=== PATIENT | female | born 1995 | race African-American/Black ===

== ENCOUNTER 2017-04-09 11:24 | Emergency (ER) | payer MEDICAID, OTHER ==
[~2017-04-09 11:24] MED LIST: IBUP800T23 PO; METHO500 PO
[2017-04-09 11:43] VITALS: BP 106/68; PULSE 81
[2017-04-09 12:23] LABS: BACTERIA, URINE FEW /hpf; BLOOD, URINE NEG (NEG); COMMENT (UR) CULT NOT INDICATED; CULTURE IF INDICATED CULT NOT INDICATED; GLUCOSE,URINE NEG (NEG); KETONE, URINE NEG (NEG); MUCUS URINE FEW /lpf (OCC); NITRITE,URINE NEG (NEG); PH, URINE 7.5 (5.0-8.5); SQUAMOUS EPITHELIAL CELL URINE 8 /hpf (0-5); TRANSITIONAL EPI CELLS, URINE <1 /hpf; URINE COLOR YELLOW (YELLW/STRAW)
--- NOTE | 2017-04-09 12:43 | PD ---
HPI Chief Complaint Left-sided abdominal pain just today Date Seen: Apr 09, 2017 Travel History International Travel<30 Days: No Contact w/Intl Traveler<30Days: No Known Affected Area: No History of Present Illness HPI Patient 22-year-old black female at 29 weeks presents plan left-sided abdominal pain today. Pain is sharp and comes and goes she describes every 6 minutes or so. heart rate tracing is reactive and no contractions seen on the monitor patient denies bleeding or rupture the membranes. Para: 0 : 1 History Social History Alcohol Use: No Tobacco Use: No Substance Abuse: No Allergies-Medications (Allergen,Severity, Reaction): Coded Allergies: No Known Allergies (Unverified , 04/02/15) Home Meds Active Scripts Methocarbamol (Robaxin 500 Mg Tab)500 Mg [id number] Mg PO QID 7 Days Ref 0 Prov:Keyla Peters MD 04/02/15 Ibuprofen 800 Mg [id number] Mg PO TID 10 Days Ref 0 Prov:Keyla Peters MD 04/02/15 Review of Systems General / Constitutional: No: Fever, Weight Gain, Chills, Other Eyes: No: Diploplia, Blurred Vision, Visual changes, Pain, Photophobia HENT: No: Headaches, Vertigo, Lightheadedness Cardiovascular: No: Irregular Rhythm, Chest Pain or Discomfort, Palpitations, Tachycardia, Syncope, Varicosities, Edema, Cyanosis Respiratory: No: Cough, Short of Breath, Other Gastrointestinal: Abdominal Pain, No: Nausea, Vomiting, Diarrhea Genitourinary: No: Decreased Urinary Output, Oliguria Musculoskeletal: No: Limited ROM, Weakness, Cramping, Edema, Pain Skin: No Rash, No Itching, No Dryness, No Lumps, No Change in Pigmentation, No Change in Nails, No Alopecia, No Lesions Neurologic: No: Weakness, Dizziness, Syncope, Focal Abnormalities, Coordination Problem, Headache, Slurred Speech, Seizures Psychiatric: No: Depression, Suicidal Ideations, Homicidal Ideation Endocrine: No: Heat Intolerance, Cold Intolerance, Polydipsia, Polyuria, Other Physical Exam Vital Signs Date Time Temp Pulse Resp B/P Pulse Ox O2 Delivery O2 Flow Rate FiO2 04/09/17 11:43 81 106/68 Narrative GENERAL: Well-nourished, well-developed patient. SKIN: Warm and dry. HEAD: Normocephalic and atraumatic. EYES: No scleral icterus. No injection or drainage. ENT: No nasal drainage noted. Mucous membranes pink. Airway patent. NECK: Supple, trachea midline. No JVD. CARDIOVASCULAR: Regular rate and rhythm without murmurs, gallops, or rubs. RESPIRATORY: Breath sounds equal bilaterally. No accessory muscle use. BREASTS: Bilateral exam showed no masses , no retractions, no nipple discharge. ABDOMEN/GI: Abdomen soft, non-tender, bowel sounds present, no rebound, no guarding Gravid to [-29] weeks size Fundal Height: [29-] GENITOURINARY: External Genitalia: intact and normal in appearance BUS glands: [-] Cervix: [-] Dilatation: [-Closed] Effacement: [-] Thick Station: [-3] Membranes: [intact ] Uterine Contractions: [none-] FHT's: Category: [1-] Baseline: [133-] Reactive: [-yes] Variability: [-mod] Decels: [0-] EXTREMITIES: No cyanosis or edema. BACK: Nontender without obvious deformity. No CVA tenderness. NEUROLOGICAL: Awake and alert. Motor and sensory grossly within normal limits. Five out of 5 muscle strength in all muscle groups. Normal speech. Data Data Orders Vital Signs (Adult) .ON ADMISSION (04/09/17 11:52) ^ Labor Status (04/09/17 11:52) Urinalysis - C+S If Indicated (04/09/17 11:52) Labs Laboratory Tests Test 04/09/17 12:00 Urine Color YELLOW Urine Turbidity HAZY Urine pH 7.5 Urine Specific [place] 1.013 Urine Protein NEG Urine Glucose (UA) NEG Urine Ketones NEG Urine Occult Blood NEG Urine Nitrite NEG Urine Bilirubin NEG Urine Urobilinogen LESS THAN 2.0 Urine Leukocyte Esterase NEG Urine RBC 1 Urine WBC 1 Urine Squamous Epithelial 8 Cells Urine Transitional Epithelial <1 Cells Urine Bacteria FEW Urine Mucus FEW Microscopic Urinalysis Comment CULT NOT INDICATED MDM Interpretation(s) Patient 22-year-old white female at [address] Toro for care who presents complaining of left-sided abdominal pain sharp on today, no bleeding or leakage of fluid. Baby is active. heart rate tracing is reactive. contractions none seen, urinalysis negative, cervix closed and high Plan Plan for patient to be at bedrest increase her fluid intake and use a heating pad or hot bath for comfort Tylenol by mouth as needed and follow up with her OB provider return for worsening symptoms Diagnosis Diagnosis: Primary Impression: 29 weeks gestation of Additional Impression: Pain of round ligament during Disposition: 01 DISCHARGE HOME Condition: Stable Patient Instructions: General Instructions Departure Forms: Tests/Procedures Rasheed Calderon II, MD Apr 09, 2017 12:43
== END 2017-04-09 12:54 | disposition home or self-care (01) ==
LOC: HOBED 11:24
DX: O26.893 Other specified pregnancy related conditions, third trimester (principal); R10.2 Pelvic and perineal pain; Z3A.29 29 weeks gestation of pregnancy
CPT/HCPCS: 81001; 99283

== ENCOUNTER 2017-06-15 13:36 | Emergency (ER) | payer MEDICAID ==
--- NOTE | 2017-06-15 14:28 | PD ---
HPI Chief Complaint Contractions and spotting Date Seen: Jun 15, 2017 Time Seen: 14:20 Travel History International Travel<30 Days: No Contact w/Intl Traveler<30Days: No Known Affected Area: No History of Present Illness HPI This patient is 22-year-old black female at 38-39 weeks who presents with contractions that are mild and minimal amount of spotting. No gross blood per vagina no leakage of fluid. heart tones are reactive and she is meena every 6-[address] Toro for care Weeks Gestation: 38 Para: 0 : 1 History Social History Alcohol Use: No Tobacco Use: No Substance Abuse: No Allergies-Medications (Allergen,Severity, Reaction): Coded Allergies: No Known Allergies (Unverified , 04/02/15) Home Meds Active Scripts Methocarbamol (Robaxin 500 Mg Tab) 500 Mg Tab, 500 MG PO QID for 7 Days, TAB 0 Refills Prov:Keyla Peters MD 04/02/15 Ibuprofen (Ibuprofen) 800 Mg Tab, 800 MG PO TID for 10 Days, TAB 0 Refills Prov:Keyla Peters MD 04/02/15 Review of Systems General / Constitutional: No: Fever, Weight Gain, Chills, Other Eyes: No: Diploplia, Blurred Vision, Visual changes, Pain, Photophobia HENT: No: Headaches, Vertigo, Lightheadedness Cardiovascular: No: Irregular Rhythm, Chest Pain or Discomfort, Palpitations, Tachycardia, Syncope, Varicosities, Edema, Cyanosis Respiratory: No: Cough, Short of Breath, Other Gastrointestinal: Abdominal Pain, No: Nausea, Vomiting, Diarrhea Genitourinary: Vaginal Bleeding, No: Decreased Urinary Output, Oliguria Musculoskeletal: No: Limited ROM, Weakness, Cramping, Edema, Pain Skin: No Rash, No Itching, No Dryness, No Lumps, No Change in Pigmentation, No Change in Nails, No Alopecia, No Lesions Neurologic: No: Weakness, Dizziness, Syncope, Focal Abnormalities, Coordination Problem, Headache, Slurred Speech, Seizures Psychiatric: No: Depression, Suicidal Ideations, Homicidal Ideation Endocrine: No: Heat Intolerance, Cold Intolerance, Polydipsia, Polyuria, Other Physical Exam Narrative GENERAL: Well-nourished, well-developed patient. SKIN: Warm and dry. HEAD: Normocephalic and atraumatic. EYES: No scleral icterus. No injection or drainage. ENT: No nasal drainage noted. Mucous membranes pink. Airway patent. NECK: Supple, trachea midline. No JVD. CARDIOVASCULAR: Regular rate and rhythm without murmurs, gallops, or rubs. RESPIRATORY: Breath sounds equal bilaterally. No accessory muscle use. BREASTS: Bilateral exam showed no masses , no retractions, no nipple discharge. ABDOMEN/GI: Abdomen soft, non-tender, bowel sounds present, no rebound, no guarding Gravid to [-38] weeks size Fundal Height: [-38] GENITOURINARY: External Genitalia: intact and normal in appearance BUS glands: [-] Cervix: [-Closed] Dilatation: [Closed-] Effacement: [-] Thick Station: [-3] Presentation: [-vtx] Membranes: [intact ] Uterine Contractions: [-q 7 min] FHT's: Category: [-1] Baseline: [133-] Reactive: [-yes] Variability: [mod-] Decels: [none-] EXTREMITIES: No cyanosis or edema. BACK: Nontender without obvious deformity. No CVA tenderness. NEUROLOGICAL: Awake and alert. Motor and sensory grossly within normal limits. Five out of 5 muscle strength in all muscle groups. Normal speech. MDM Interpretation(s) 22-year-old black female at 38-39 weeks presents with contractions and spotting minimally. heart tones are reactive and she is meena every 7 minutes. Patient states that she's barely feeling the contractions at this time and her cervix is closed and high. Plan Plan to discharge patient home to bedrest to drink plenty of fluids heating pad along her lower abdomen were hot bath symptoms and just observe is going on as the real thing her labor will progress in the contractions strength in and get closer together Diagnosis Diagnosis: Primary Impression: False labor after 37 weeks of gestation without delivery Disposition: 01 DISCHARGE HOME Condition: Stable Rasheed Calderon II, MD Jun 15, 2017 14:28
== END 2017-06-15 15:00 | disposition home or self-care (01) ==
LOC: HOBED 13:36
DX: O47.1 False labor at or after 37 completed weeks of gestation (principal); Z3A.38 38 weeks gestation of pregnancy
CPT/HCPCS: 59025

== ENCOUNTER 2017-06-28 20:15 | Inpatient (IN) | payer MEDICAID ==
[~2017-06-28] VITALS: Ht 175.3 cm; Wt 77.6 kg
[2017-06-28 21:30] VITALS: RESP 18
[2017-06-28 22:00] VITALS: RESP 18
[2017-06-28] MEDS ORDERED: NS 1000 ML OTHER PRN (22:00)
[2017-06-28] MEDS: LACTATED RINGER'S 1000 ML IV SCH (22:00)
[2017-06-28] MEDS ORDERED: LACTATED RINGER'S 1000 ML BOLUS IV PRN (22:00)
[2017-06-28] MEDS ORDERED: SODIUM CHLORIDE 0.9% FLUSH 10 ML FLUSH IV FLUSH PRN (22:00)
[2017-06-28] MEDS ORDERED: DINOPROSTONE 10 MG INSERT-LEAVE FOR 12 HOURS VAGINAL ONE (22:00)
[2017-06-28] MEDS: LACTATED RINGER'S 1000 ML INJ 1,000 ML IV SCH (22:00)
[2017-06-28] MEDS ORDERED: CITRIC ACID-SODIUM CITRATE LIQ 30 ML UDC PO SCH (22:15)
[2017-06-28] MEDS ORDERED: LIDOCAINE HCL 1% 50 ML VIAL INFIL PRN (22:15)
[2017-06-28] MEDS ORDERED: MINERAL OIL 10 ML VIAL TOPICAL PRN (22:15)
[2017-06-28] MEDS ORDERED: NS 500 ML BOLUS IV PRN (22:15)
[2017-06-28] MEDS ORDERED: ZOLPIDEM TARTRATE 10 MG TAB PO PRN (22:15)
[2017-06-28] MEDS ORDERED: ONDANSETRON HCL 4 MG/2 ML VIAL IV PUSH PRN (22:15)
[2017-06-28] MEDS ORDERED: LIDOCAINE HCL 1% 50 ML VIAL I-DERMAL PRN (22:15)
[2017-06-28] MEDS ORDERED: NS 1000 ML IV PRN (22:15)
[2017-06-28 22:25] LABS: BASOPHIL % 0.5 % (0.0-2.0); EOSINOPHIL # 0.1 TH/MM3 (0-0.4); EOSINOPHIL % 2.3 % (0.0-4.0); HEMATOCRIT 26.7 % (35.0-46.0); HEMO FLAGS DIFF FINAL; LYMPHOCYTE # 1.1 TH/MM3 (1.0-4.8); MEAN CELL VOLUME 68.6 FL (80.0-100.0); MEAN CORPUSCULAR HEMOGLOBIN 21.7 PG (27.0-34.0); MEAN CORPUSCULAR HGB CONC 31.6 % (32.0-36.0); NEUT % 63.2 % (16.0-70.0); PLATELET COUNT 183 TH/MM3 (150-450); RED BLOOD COUNT 3.89 MIL/MM3 (4.00-5.30); RED CELL DISTRIBUTION WIDTH 15.2 % (11.6-17.2); WHITE BLOOD COUNT 4.8 TH/MM3 (4.0-11.0)
[2017-06-28 22:30] VITALS: RESP 18
[2017-06-28 22:36] LABS: BACTERIA, URINE OCC /hpf; BLOOD, URINE MOD (NEG); COMMENT (UR) CULTURE INDICATED; CULTURE IF INDICATED CULTURE INDICATED; GLUCOSE,URINE 70 mg/dL (NEG); KETONE, URINE NEG (NEG); MUCUS URINE FEW /lpf (OCC); NITRITE,URINE NEG (NEG); PH, URINE 6.5 (5.0-8.5); SQUAMOUS EPITHELIAL CELL URINE 4 /hpf (0-5); URINE COLOR LIGHT-YELLOW (YELLW/STRAW)
[2017-06-28 23:00] VITALS: RESP 18
[2017-06-28 23:30] VITALS: RESP 18
[2017-06-29] VITALS (26 sets, daily range): BP systolic 119–132; BP diastolic 68–90; PULSE 68–87; RESP 6–20; TEMP 98–98.6
[2017-06-29] MEDS: LACTATED RINGER'S 1000 ML IV SCH ×2 (05:50→17:03)
[2017-06-29] MEDS: LACTATED RINGER'S 1000 ML INJ 1,000 ML IV SCH (06:00)
--- NOTE | 2017-06-29 08:09 | HHI.HP ---
HPI Chief Complaint post dates labor induction, abnl testing in office Date Seen: Jun 28, 2017 Time Seen: 21:30 Travel History International Travel<30 Days: No Contact w/Intl Traveler<30Days: No Known Affected Area: No History of Present Illness HPI 22 yo G1 with EDC 06/24/17 seen in the office for postdates testing at 40w4d on 06/28/17 with abnormal finding of increased UA doppler. Due to postdates it was discussed with pt induction was recommended and pt was sent to L&D. BPP in office was 05/03. has been complicated by chronic anemia, baseline Hgb 9.0. Patient is also sickle cell trait positive, father of baby is negative. Most recently EFW was 64%tile at 35 weeks. Pt c/o pelvic pressure but no regular contractions, no VB or LOF. Good FM. Pain 1-2/10 pressure. Weeks Gestation: 41 Para: 0 : 1 Last Menstrual Period: Sep 17, 2016 Miscarriage: 0 : 0 History Past Medical History Narrative Medical chronic anemia sickle cell trait + Obstetric History Obstetric History G1 = current, female Past Surgical History Surgical History: No Previous Surgery Family History Family History: Negative Social History Alcohol Use: No Tobacco Use: No Substance Abuse: No Allergies-Medications (Allergen,Severity, Reaction): Coded Allergies: No Known Allergies (Unverified , 06/28/17) Home Meds Active Scripts Methocarbamol (Robaxin 500 Mg Tab) 500 Mg Tab, 500 MG PO QID for 7 Days, TAB 0 Refills Prov:Keyla Peters MD 04/02/15 Ibuprofen (Ibuprofen) 800 Mg Tab, 800 MG PO TID for 10 Days, TAB 0 Refills Prov:Keyla Peters MD 04/02/15 Review of Systems General / Constitutional: Weight Gain, No: Fever, Chills, Other Eyes: No: Diploplia, Blurred Vision, Visual changes, Pain, Photophobia HENT: No: Headaches, Vertigo, Lightheadedness Cardiovascular: No: Irregular Rhythm, Chest Pain or Discomfort, Palpitations, Tachycardia, Syncope, Varicosities, Edema, Cyanosis Respiratory: No: Cough, Short of Breath, Other Gastrointestinal: No: Nausea, Vomiting, Diarrhea Genitourinary: Pelvic Pain (pressure), No: Decreased Urinary Output, Oliguria Musculoskeletal: No: Limited ROM, Weakness, Cramping, Edema, Pain Skin: No Rash, No Itching, No Dryness, No Lumps, No Change in Pigmentation, No Change in Nails, No Alopecia, No Lesions Neurologic: No: Weakness, Dizziness, Syncope, Focal Abnormalities, Coordination Problem, Headache, Slurred Speech, Seizures Psychiatric: No: Depression, Suicidal Ideations, Homicidal Ideation Endocrine: No: Heat Intolerance, Cold Intolerance, Polydipsia, Polyuria, Other Physical Exam Vital Signs Date Time Temp Pulse Resp B/P (MAP) Pulse Ox O2 Delivery O2 Flow Rate FiO2 06/29/17 05:48 98.0 06/29/17 05:48 78 18 130/80 (97) 06/29/17 05:00 18 06/29/17 04:00 18 06/29/17 03:00 18 06/29/17 02:00 18 06/29/17 01:00 18 06/29/17 00:00 18 06/28/17 23:30 18 06/28/17 23:00 18 06/28/17 22:30 18 06/28/17 22:00 18 06/28/17 21:30 18 Narrative GENERAL: Well-nourished, well-developed patient. SKIN: Warm and dry. HEAD: Normocephalic and atraumatic. EYES: No scleral icterus. No injection or drainage. ENT: No nasal drainage noted. Mucous membranes pink. Airway patent. NECK: Supple, trachea midline. No JVD. CARDIOVASCULAR: Regular rate and rhythm without murmurs, gallops, or rubs. RESPIRATORY: Breath sounds equal bilaterally. No accessory muscle use. BREASTS: deferred ABDOMEN/GI: Abdomen soft, non-tender, bowel sounds present, no rebound, no guarding Gravid to [41] weeks size Fundal Height: [38] GENITOURINARY: External Genitalia: intact and normal in appearance BUS glands: [wnl] Cervix: [posterior] Dilatation: [1] Effacement: [50] Station: [-3] Presentation: [-] Membranes: [intact] Uterine Contractions: [irregular, rare] FHT's: 8/8 BPP in office, FHTs 130s EXTREMITIES: No cyanosis or edema. BACK: Nontender without obvious deformity. No CVA tenderness. NEUROLOGICAL: Awake and alert. Motor and sensory grossly within normal limits. Five out of 5 muscle strength in all muscle groups. Normal speech. Caprini VTE Risk Assessment Caprini VTE Risk Assessment: No/Low Risk (score <= 1) VTE Pharm Contraindication: High risk for bleeding Caprini Risk Assessment Model Point Value = 1 Point Value = 2 Point Value = 3 Point Value = 5 Age 41-60 Minor surgery BMI > 25 kg/m2 Swollen legs Varicose veins or History of unexplained or recurrent spontaneous Oral contraceptives or hormone replacement Sepsis (< 1 month) Serious lung disease, including pneumonia (< 1 month) Abnormal pulmonary function Acute myocardial infarction Congestive heart failure (< 1 month) History of inflammatory bowel disease Medical patient at bed rest Age 61-74 Arthroscopic surgery Major open surgery (> 45 min) Laparoscopic surgery (> 45 min) Malignancy Confined to bed (> 72 hours) Immobilizing plaster cast Central venous access Age >= 75 History of VTE Family history of VTE Factor V Leiden Prothrombin [id number] Lupus anticoagulant Anticardiolipin antibodies Elevated serum homocysteine Heparin-induced thrombocytopenia Other congenital or acquired thrombophilia Stroke (< 1 month) Elective arthroplasty Hip, pelvis, or leg fracture Acute spinal cord injury (< 1 month) Prophylaxis Regimen Total Risk Factor Score Risk Level Prophylaxis Regimen 0-1 Low Early ambulation 2 Moderate Order ONE of the following: *Sequential Compression Device (SCD) *Heparin 5000 units SQ BID 3-4 Higher Order ONE of the following medications: *Heparin 5000 units SQ TID *Enoxaparin/Lovenox 40 mg SQ daily (WT < 150 kg, CrCl > 30 mL/min) *Enoxaparin/Lovenox 30 mg SQ daily (WT < 150 kg, CrCl > 10-29 mL/min) *Enoxaparin/Lovenox 30 mg SQ BID (WT < 150 kg, CrCl > 30 mL/min) AND/OR *Sequential Compression Device (SCD) 5 or more Highest Order ONE of the following medications: *Heparin 5000 units SQ TID (Preferred with Epidurals) *Enoxaparin/Lovenox 40 mg SQ daily (WT < 150 kg, CrCl > 30 mL/min) *Enoxaparin/Lovenox 30 mg SQ daily (WT < 150 kg, CrCl > 10-29 mL/min) *Enoxaparin/Lovenox 30 mg SQ BID (WT < 150 kg, CrCl > 30 mL/min) AND *Sequential Compression Device (SCD) Data Data Vital Signs Reviewed: Yes Orders Orders Admit To Inpatient (06/28/17 ) Diet Liquid (06/29/17 Breakfast) Activity Oob Ad Kim (06/28/17 21:51) ^ Labor Induction (06/28/17 21:51) ^ Vaginal Insert (06/28/17 21:51) ^ Vaginal Lavage (06/28/17 21:51) Heart (06/28/17 21:51) Admit To Inpatient (06/28/17 ) Vital Signs (Adult) .Per protocol (06/28/17 21:52) Activity Oob Ad Kim (06/28/17 21:52) Heart (06/28/17:52) Amnioinfusion (06/28/17:52) Urinary Catheter Management .ONCE (06/28/17 21:52) Complete Blood Count With Diff (06/28/17 21:52) Hold Clot (06/28/17:52) Abo/Rh Blood Type (06/28/17 21:52) Urinalysis - C+S If Indicated (06/28/17 21:52) Resp Oxygen Non Rebreathe Mask (06/28/17 ) ^ Epidural / Intrathecal Infus (06/28/17 21:52) Dinoprostone Vag Insert (Cervidil Vag In (06/28/17 22:00) Lactated Ringer's 1000 Ml Inj (Lr 1000 M (06/28/17 22:00) Sodium Chloride 0.9% Flush (Ns Flush) (06/28/17 22:00) Sodium Chlor 0.9% 1000 Ml Inj (Ns 1000 M (06/28/17 22:00) Lactated Ringer's 1000 Ml Inj (Lr 1000 M (06/28/17 22:00) Lactated Ringer's 1000 Ml Inj (Lr 1000 M (06/28/17 22:00) Sodium Chlorid 0.9% 500 Ml Inj (Ns 500 M (06/28/17 22:15) Sodium Chlor 0.9% 1000 Ml Inj (Ns 1000 M (06/28/17 22:15) Lidocaine 1% Inj (50 Ml) (Xylocaine 1% I (06/28/17 22:15) Citric Acid-Sodium Citrate Liq (Bicitra (06/28/17 22:15) Ondansetron Inj (Zofran Inj) (06/28/17 22:15) Fentanyl Inj (Fentanyl Inj) (06/28/17 22:15) Fentanyl Inj (Fentanyl Inj) (06/28/17 22:15) Oxytocin 30 Units-500ml Premix (Pitocin (06/29/17 10:30) Lidocaine 1% Inj (50 Ml) (Xylocaine 1% I (06/28/17 22:15) Light Mineral Oil (Muri-Lube Oil) (06/28/17 22:15) Zolpidem (Ambien) (06/28/17 22:15) Urine Culture (06/28/17 20:34) Group B Strep: Negative Labs Laboratory Tests Test 06/28/17 20:34 06/28/17 21:00 Urine Color LIGHT-YELLOW Urine Turbidity HAZY Urine pH 6.5 Urine Specific [place] 1.007 Urine Protein TRACE Urine Glucose (UA) 70 Urine Ketones NEG Urine Occult Blood MOD Urine Nitrite NEG Urine Bilirubin NEG Urine Urobilinogen LESS THAN 2.0 Urine Leukocyte Esterase LARGE Urine RBC 29 Urine WBC 13 Urine Squamous Epithelial Cells 4 Urine Bacteria OCC Urine Mucus FEW Urine Yeast (Budding) RARE Microscopic Urinalysis Comment CULTURE INDICATED White Blood Count 4.8 Red Blood Count 3.89 Hemoglobin 8.4 Hematocrit 26.7 Mean Corpuscular Volume 68.6 Mean Corpuscular Hemoglobin 21.7 Mean Corpuscular Hemoglobin Concent 31.6 Red Cell Distribution Width 15.2 Platelet Count 183 Mean Platelet Volume 10.9 Neutrophils (%) (Auto) 63.2 Lymphocytes (%) (Auto) 22.0 Monocytes (%) (Auto) 12.0 Eosinophils (%) (Auto) 2.3 Basophils (%) (Auto) 0.5 Neutrophils # (Auto) 3.0 Lymphocytes # (Auto) 1.1 Monocytes # (Auto) 0.6 Eosinophils # (Auto) 0.1 Basophils # (Auto) 0.0 CBC Comment DIFF FINAL Differential Comment Date/Time Source Procedure Growth Status 06/28/17 20:34 Urine Clean Catch Urine Culture Pending Received Assessment/Plan Problem List: (1) Post-dates ICD Codes: O48.0 - Post-term Status: Acute (2) Labor and delivery indication for care or intervention ICD Codes: O75.9 - Complication of labor and delivery, unspecified Status: Acute Assessment and Plan 22 yo G1 with IUP at 40w5d admit for IOL due to postdates & abnormal testing in office, increased UA dopplers 1) IOL: start with cervidil overnight, reevaluate in AM for addt'l induction methods as indicated 2) GBS neg 3) small for dates: although pt measures small on exam last estimated weight 64%tile at 35 wks 4) abnl dopplers: increased UA doppler on exam 06/28/17, BPP 8/8 5) sickle cell trait positive: father of baby tested and negative 6) chronic anemia: baseline Hgb 9.0 7) status: vertex, female, EFW 6.5-7# Discharge Planning routine, 2 days PP Mary Toro MD Jun 29, 2017 08:09
[2017-06-29] MEDS ORDERED: OXYTOCIN 30 UNITS 500ML PREMIX IV ONE (10:30)
--- NOTE | 2017-06-29 10:41 | PD.LABORPN ---
Subjective Subjective S/P cervidil x 12 hours, mild UCs, Objective Vital Signs Vital Signs Date Time Temp Pulse Resp B/P (MAP) Pulse Ox O2 Delivery O2 Flow Rate FiO2 06/29/17 08:08 98.3 87 128/68 (88) 06/29/17 08:07 20 06/29/17 05:48 98.0 06/29/17 05:48 78 18 130/80 (97) 06/29/17 05:00 18 06/29/17 04:00 18 06/29/17 03:00 18 Objective Pelvic Exam: Cervix: posterior, difficult to exam patient Dilatation:"1" Effacement: 50 Station: -2 Presentation: vtx Membranes: intact Uterine Contractions: mild FHT's: Category: 1 Decels: none Weeks Gestation: 41 Gest Age Assessed Date: Jun 28, 2017 Gest Age Assessed Time: 21:00 Pt started active labor?: No Medical induction of labor?: Yes Medical induction start date: Jun 28, 2017 Medical induction start time: 23:00 Artificial rupture of membrane: No Assessment/Plan Problem List: (1) Post-dates ICD Codes: O48.0 - Post-term Status: Acute Qualifiers: Qualified Codes: O48.0 - Post-term (2) Labor and delivery indication for care or intervention ICD Codes: O75.9 - Complication of labor and delivery, unspecified Status: Acute Assessment and Plan 40+ weeks, G1, minimal change in cervix after cervidil, FHR CAT 1; will try cytotec and re-evaluate ,discussed possible serial induction/Medical induction Rafy Juarez MD Jun 29, 2017 10:41
[2017-06-29] MEDS ORDERED: MISOPROSTOL 25 MCG SUPP VAGINAL ONE (11:00)
[2017-06-30] VITALS (69 sets, daily range): BP systolic 95–147; BP diastolic 58–112; PULSE 67–256; RESP 18; TEMP 98.5–99.3; O2SAT 98
[2017-06-30] MEDS ORDERED: DINOPROSTONE 10 MG VAG INSERT VAGINAL ONE (00:30)
[2017-06-30] MEDS ORDERED: fentaNYL 2MCG-BUPIV 0.125% INJ 100 ML ONE (07:55)
[2017-06-30] MEDS ORDERED: ePHEDrine/NS 25 MG/5 ML SYR ONE (07:56)
--- NOTE | 2017-06-30 08:16 | PD.LABORPN ---
Subjective Subjective pt very uncomfortable with contractions, s/p cervidil, cytotec, cervidil, here since 06/28/17 Objective Vital Signs Vital Signs Date Time Temp Pulse Resp B/P (MAP) Pulse Ox O2 Delivery O2 Flow Rate FiO2 06/30/17 08:00 18 06/30/17 06:00 18 06/30/17 04:00 18 06/30/17 03:00 18 06/30/17 02:00 18 06/30/17 00:30 18 Objective Pelvic Exam: Cervix: [-] Dilatation: [-] 2 Effacement: [-] 50 Station: [-] -2 Presentation: [-] vtx Membranes: [intact or ruptured] arom clear Uterine Contractions: [-] irreg FHT's: Category: [-] 1 Baseline: [-] Reactive: [-] R Variability: [-] good Decels: [-] Weeks Gestation: 40 Gest Age Assessed Date: Jun 28, 2017 Gest Age Assessed Time: 21:00 Pt started active labor?: Yes Active labor start date: Jun 30, 2017 Active labor start time: 08:14 Medical induction of labor?: Yes Medical induction start date: Jun 28, 2017 Medical induction start time: 23:00 Artificial rupture of membrane: Yes Artificial ROM date: Jun 30, 2017 Artifical ROM time: 08:14 Assessment/Plan Problem List: (1) Post-dates ICD Codes: O48.0 - Post-term Status: Acute Qualifiers: Qualified Codes: O48.0 - Post-term (2) Labor and delivery indication for care or intervention ICD Codes: O75.9 - Complication of labor and delivery, unspecified Status: Acute Assessment and Plan IUP at 40 6/7 wks, s/p cervidil, cytotec, cervidil, arom start pitocin, pt requests epidural f/u labor progress, anticipate Elizabeth Webb MD Jun 30, 2017 08:16
[2017-06-30] MEDS ORDERED: OXYTOCIN 30 UNITS-500ML PREMIX 500 ML IV SCH ×2 (08:30→16:15)
[2017-06-30] MEDS ORDERED: fentaNYL 2MCG-BUPIV 0.125% 100 ML EPIDURAL SCH (10:15)
[2017-06-30] MEDS ORDERED: DO NOT ADMINISTER ANTICOAGULANTS PRN (10:15)
[2017-06-30] MEDS ORDERED: NO SYSTEM NARCOTICS PRN (10:15)
[2017-06-30] MEDS ORDERED: ePHEDrine/NS 25 MG/5 ML SYR IV PUSH PRN (10:15)
[2017-06-30] MEDS ORDERED: MEASLES, MUMPS, RUBELLA VACCINE 0.5 ML VIAL SQ ONE (16:00)
[2017-06-30] MEDS ORDERED: DIPHTH/TETANUS/ACEL PERTUSSIS (BOOSTER) 0.5 ML VIAL/PFS IM ONE (16:00)
--- NOTE | 2017-06-30 16:13 | PD.OB.DELI ---
Weeks gestation: 40 Gest age assessed date: Jun 28, 2017 Gest age assessed time: 21:00 Pt started active labor?: Yes Active labor start date: Jun 30, 2017 Active labor start time: 08:14 Medical induction of labor?: Yes Medical induction start date: Jun 28, 2017 Medical induction start time: 23:00 Artificial rupture of membrane: Yes Artificial ROM date: Jun 30, 2017 Artifical ROM time: 08:14 Anesthesia: Epidural Episiotomy: None Vaginal Delivery: Normal Presentation: Occiput anterior (SHERRY) Nuchal Cord: None Delayed cord clamping (45 sec): No Infant: Female Delivery date: Jun 30, 2017 Delivery time: 15:52 Placenta: Spontaneous delivery Laceration: 2 deg Repair: Chromic interrupted, Vicryl interrupted Estimated blood loss: 500cc Elizabeth Webb MD Jun 30, 2017 16:13
[2017-06-30] MEDS ORDERED: BENZOCAINE 20% TOPICAL SPRAY 60 ML CAN TOPICAL PRN (16:15)
[2017-06-30] MEDS ORDERED: ALUMINUM/MAGNESIUM/SIMETH 30 ML CUP PO PRN (16:15)
[2017-06-30] MEDS ORDERED: ONDANSETRON ODT 4 MG TAB PO PRN (16:15)
[2017-06-30] MEDS ORDERED: ZOLPIDEM TARTRATE 5 MG TAB PO PRN (16:15)
[2017-06-30] MEDS ORDERED: WITCH HAZEL 50%/GLYCERIN 12.5% 40 PAD JAR TOPICAL PRN (16:15)
[2017-06-30] MEDS ORDERED: ACETAMINOPHEN 325 MG TAB PO PRN (16:15)
[2017-06-30] MEDS ORDERED: SODIUM CHLORIDE 0.9% FLUSH 10 ML FLUSH IV FLUSH PRN (16:15)
[2017-06-30] MEDS: IBUPROFEN 600 MG TAB PO PRN (20:08)
[2017-06-30] MEDS: DOCUSATE SODIUM 50 MG/SENNA 8.6 MG TAB PO PRN (20:08)
[2017-06-30] MEDS ORDERED: SODIUM CHLORIDE 0.9% FLUSH 10 ML FLUSH IV FLUSH SCH (21:00)
[2017-07-01 07:43] VITALS: BP 116/66; PULSE 89; RESP 16; TEMP 98.5; O2SAT 98
--- NOTE | 2017-07-01 08:26 | HHI.OB ---
Subjective Post Day: 1 Remarks doing well Objective Vitals/I&O Vital Signs Date Time Temp Pulse Resp B/P (MAP) Pulse Ox O2 Delivery O2 Flow Rate FiO2 07/01/17 07:43 98.5 89 16 116/66 (83) 98 06/30/17 19:40 92 18 06/30/17 19:40 116/72 (87) 06/30/17 19:40 98.7 98 06/30/17 19:01 89 136/90 (105) 06/30/17 19:00 18 06/30/17 17:30 18 06/30/17 17:15 95 129/90 (103) 06/30/17 17:06 18 06/30/17 17:00 102 129/83 (98) 06/30/17 17:00 18 06/30/17 16:45 99.3 06/30/17 16:45 97 18 134/86 (102) 06/30/17 16:30 91 18 143/87 (105) 06/30/17 16:15 90 18 130/82 (98) 06/30/17 16:00 101 128/84 (99) 06/30/17 14:45 18 06/30/17 14:30 135/87 (103) 06/30/17 14:30 82 06/30/17 14:00 83 136/95 (109) 06/30/17 13:51 99.2 06/30/17 13:45 18 06/30/17 13:30 69 116/65 (82) 06/30/17 13:15 18 06/30/17 13:00 79 118/62 (80) 06/30/17 12:36 18 06/30/17 12:30 68 121/70 (87) 06/30/17 12:15 18 06/30/17 12:00 75 122/77 (92) 06/30/17 11:45 18 06/30/17 11:30 95 131/95 (107) 06/30/17 11:11 18 06/30/17 11:00 74 120/76 (91) 06/30/17 10:45 18 06/30/17 10:30 92 130/85 (100) 06/30/17 10:15 93 130/83 (99) 06/30/17 10:15 87 06/30/17 10:10 89 126/77 (93) 06/30/17 10:10 87 06/30/17 10:05 71 06/30/17 10:05 71 122/62 (82) 06/30/17 10:00 70 107/62 (77) 06/30/17 10:00 67 06/30/17 09:55 70 108/58 (75) 06/30/17 09:55 67 06/30/17 09:50 72 116/59 (78) 06/30/17 09:50 68 06/30/17 09:48 98.5 18 06/30/17 09:45 73 111/65 (80) 06/30/17 09:45 69 06/30/17 09:45 18 06/30/17 09:40 75 113/68 (83) 06/30/17 09:40 72 06/30/17 09:35 76 103/88 (93) 06/30/17 09:35 74 06/30/17 09:30 18 06/30/17 09:30 74 114/61 (78) 06/30/17 09:30 77 06/30/17 09:25 75 06/30/17 09:25 75 108/59 (75) 06/30/17 09:21 75 113/63 (80) 06/30/17 09:20 79 06/30/17 09:16 83 135/78 (97) 06/30/17 09:15 80 06/30/17 09:15 18 06/30/17 09:14 124 129/81 (97) 06/30/17 09:10 91 06/30/17 09:06 256 141/112 (122) 06/30/17 09:05 90 127/99 (108) 06/30/17 09:05 91 06/30/17 09:00 18 06/30/17 09:00 82 06/30/17 09:00 82 114/71 (85) 06/30/17 08:55 84 114/66 (82) 06/30/17 08:55 87 06/30/17 08:50 76 123/83 (96) 06/30/17 08:45 79 95/69 (78) 06/30/17 08:45 76 06/30/17 08:40 80 135/83 (100) 06/30/17 08:40 82 06/30/17 08:35 85 140/94 (109) 06/30/17 08:35 80 06/30/17 08:30 72 138/86 (103) Objective Remarks GENERAL: Well-nourished, well-developed patient. CARDIOVASCULAR: Regular rate and rhythm without murmurs, gallops, or rubs. RESPIRATORY: Breath sounds equal bilaterally. No accessory muscle use. ABDOMEN/GI: Abdomen soft, non-tender. Fundus: Firm, non-tender at umbilicus. GENITOURINARY: Light to moderate bleeding. EXTREMITIES: No cyanosis or edema, non-tender, without signs of DVT. Medications and IVs Current Medications Medications (Trade) Dose Ordered Sig/Jovi Route Start Time Stop Time Status Last Admin (NS Flush) 2 ml BID IV FLUSH 06/30/17 21:00 (NS Flush) 2 ml UNSCH PRN IV FLUSH 06/30/17 16:15 (Tylenol) 650 mg Q4H PRN PO 06/30/17 16:15 (Motrin) 600 mg Q6H PRN PO 06/30/17 16:15 06/30/17 20:08 (Americaine 20% Top Spr) 1 spray Q4H PRN TOPICAL 06/30/17 16:15 06/30/17 20:08 (Tucks Pads) 1 applic QID PRN TOPICAL 06/30/17 16:15 06/30/17 20:08 (Karolyn-Colace) 2 tab Q12H PRN PO 06/30/17 16:15 06/30/17 20:08 (Ambien) 5 mg HS PRN PO 06/30/17 16:15 (Mag-Al Plus Susp Liq) 15 ml Q8H PRN PO 06/30/17 16:15 (Zofran Odt) 4 mg Q6H PRN PO 06/30/17 16:15 Assessment/Plan Problem List: (1) Post-dates ICD Codes: O48.0 - Post-term Status: Acute Qualifiers: Qualified Codes: O48.0 - Post-term (2) Labor and delivery indication for care or intervention ICD Codes: O75.9 - Complication of labor and delivery, unspecified Status: Acute Assessment and Plan PPD 1- cont routine care chronic anemia: baseline Hgb 9.0 Discharge Planning routine, 2 days PP Jasmin Serrano MD Jul 01, 2017 08:26
[2017-07-01] MEDS: DOCUSATE SODIUM 50 MG/SENNA 8.6 MG TAB PO PRN (15:01)
[2017-07-01] MEDS: IBUPROFEN 600 MG TAB PO PRN (15:02)
[2017-07-01] MEDS ORDERED: IBUP-232 PO (17:55)
--- NOTE | 2017-07-01 17:55 | HHI.DCPOC ---
Discharge Care Plan Diagnosis: (1) Vaginal delivery Your Health Problems Are: Vaginal delivery Report Symptoms to Your Doctor -Temperature above 100.5 degrees -Redness, of incision or excessive or foul smelling drainage -Unusual pain or calf pain -Increased vaginal bleeding -Painful or difficulty urinating -Feelings of extreme sadness or anxiety after 2 weeks Goals to Promote Your Health * To prevent worsening of your condition and complications * To maintain your health at the optimal level Directions to Meet Your Goals Take your medications as prescribed Follow your dietary instruction Follow activity as directed Ensure plenty of rest for recovery Drink fluids for hydration Keep your appointments as scheduled Take your immunizations and boosters as scheduled If your symptoms worsen call your PCP, if no PCP go to Urgent Care Center or Emergency Room Smoking is Dangerous to Your Health. Avoid second hand smoke Call the 24-hour crisis hotline for domestic abuse at Jasmin Serrano MD Jul 01, 2017 17:55
[2017-07-02 10:00] VITALS: BP 124/76; PULSE 84; RESP 18; TEMP 98.7
== END 2017-07-02 13:11 | disposition home or self-care (01) | DRG 775 ==
LOC: H2EB 20:15 → H1EA 06-30 19:24
PROVIDERS: ADMIT Obstetrics & Gynecology; ATTEND Obstetrics & Gynecology
PROC: 3E0P7VZ Introduction of Hormone into Female Reproductive, Via Natural or Artificial Opening (ICD-10-PCS; 2017-06-28)
PROC: 10E0XZZ Delivery of Products of Conception, External Approach (ICD-10-PCS; principal; 2017-06-30)
PROC: 0KQM0ZZ Repair Perineum Muscle, Open Approach (ICD-10-PCS; 2017-06-30)
PROC: 10907ZC Drainage of Amniotic Fluid, Therapeutic from Products of Conception, Via Natural or Artificial Opening (ICD-10-PCS; 2017-06-30)
PROC: 3E0R3BZ Introduction of Anesthetic Agent into Spinal Canal, Percutaneous Approach (ICD-10-PCS; 2017-06-30)
PROC: 00HU33Z Insertion of Infusion Device into Spinal Canal, Percutaneous Approach (ICD-10-PCS; 2017-06-30)
DX: O48.0 Post-term pregnancy (principal); O36.5930 Maternal care for other known or suspected poor fetal growth, third trimester, not applicable or unspecified; O75.89 Other specified complications of labor and delivery; D57.3 Sickle-cell trait; O99.013 Anemia complicating pregnancy, third trimester; O70.1 Second degree perineal laceration during delivery; Z37.0 Single live birth; Z3A.40 40 weeks gestation of pregnancy
CPT/HCPCS: 59025; 81001; 85025; 86850; 86900; 86901; 87086; J2590; J3010; J7120